=== PATIENT | female | born 1975 | race Caucasian/White ===

== ENCOUNTER 2017-11-08 23:45 | Emergency (ER) | payer OTHER ==
[~2017-11-08] VITALS: Ht 170.2 cm; Wt 96.0 kg
[~2017-11-08 23:45] MED LIST: YAZ1 TABLET PO
[2017-11-09 00:53] LABS: HEMATOCRIT 41.6 % (36.0-46.0); HEMOGLOBIN 14.2 G/DL (11.9-15.5); MCH 28.5 PG (29.0-34.0); MCHC 34.1 G/DL (30.0-36.0); MCV 83.4 FL (83-99); PLATELET COUNT 294 K/uL (156-360); RBC DIS.WIDTH-CV 13.2 % (11.8-14.6); RED BLOOD COUNT 4.99 M/uL (3.80-5.20); WHITE BLOOD COUNT 16.6 K/uL (4.1-10.2)
[2017-11-09 01:02] LABS: ALBUMIN 4.2 g/dL (3.2-4.8)
[2017-11-09 01:03] LABS: CHLORIDE 101 mEq/L (99-109); SODIUM 137 mEq/L (136-147)
[2017-11-09 01:05] LABS: GLUCOSE 131 mg/dL (70-99); TOTAL PROTEIN 7.8 g/dL (6.4-8.3)
[2017-11-09 01:07] LABS: TOTAL BILIRUBIN 0.5 mg/dL (0.0-1.0)
[2017-11-09 01:08] LABS: ALKALINE PHOSPHATASE 55 IU/L (3-129)
[2017-11-09 01:09] LABS: CREATININE 1.1 mg/dL (0.6-1.3); GFR ESTIMATE (CALCULATED) 58 mL/min/
[2017-11-09 01:10] LABS: AST (GOT) 16 IU/L (2-34); UREA NITROGEN (BUN) 17 mg/dL (9-23)
[2017-11-09 01:12] LABS: ALT (GPT) 15 IU/L (3-49)
[2017-11-09 01:26] LABS: QUANTITATIVE HCG < 4.0 MIU/ML
[2017-11-09 03:04] LABS: APPEARANCE CLEAR ((CLEAR)); BILIRUBIN NEGATIVE; BLOOD NEGATIVE; COLOR YELLOW ((YELLOW)); GLUCOSE (STRIP) NEGATIVE; KETONES 5; LEUKOCYTES NEGATIVE; NITRITE NEGATIVE; PROTEIN (STRIP) 30; SPECIFIC GRAVITY 1.023 (1.000-1.030); UCUL ADDED? NO; UROBILINOGEN 0.2 MG/DL (0.2-1.0)
[2017-11-09 03:13] LABS: LIPASE 40 U/L (1.0-51.0)
[2017-11-09] MEDS ORDERED: BENTYL10 MG PO (03:38)
[2017-11-09] MEDS ORDERED: ZOFRAN ODT4 MG PO (03:38)
[2017-11-09 03:50] VITALS: BP 142/89
== END 2017-11-09 03:50 | disposition home or self-care (01) ==
LOC: EME 23:45
DX: K52.9 Noninfective gastroenteritis and colitis, unspecified (principal); Z87.891 Personal history of nicotine dependence
CPT/HCPCS: 74176; 80053; 81003; 83690; 84702; 85027; 99281; 99285; J2405; J3010; J7030